=== PATIENT | male | born 1960 | race Caucasian/White ===

== ENCOUNTER 2022-02-28 15:24 | Outpatient (CLI) | payer MEDICARE, BC ==
[~2022-02-28 15:24] MED LIST: ASPI-1071 PO; ATOR10TA87 PO; DULA1.5P SQ; FLUO40CA PO; HYDR-3972 PO; IBUP-1986 PO; LEVO-65 PO; METF-437 PO; METO-395 PO; NORT10CA2 PO; OMEP40CA21 PO; RIVA4.5C17 PO; TRAZ-256 PO
== END 2022-02-28 23:59 | disposition home or self-care (01) ==
LOC: LAB SPEC 15:24
PROVIDERS: ATTEND Surgery
DX: T81.41XA Infection following a procedure, superficial incisional surgical site, initial encounter (principal); Y83.8 Other surgical procedures as the cause of abnormal reaction of the patient, or of later complication, without mention of misadventure at the time of the procedure; Y92.89 Other specified places as the place of occurrence of the external cause
CPT/HCPCS: 87070; 87075; 87077; 87186

== ENCOUNTER → 2022-05-22 | Outpatient (CLI) | payer MEDICARE, BC ==
[~2022-05-22] MED LIST changes: -LEVO-65 PO
== END | disposition home or self-care (01) ==
LOC: RAD 14:39
PROVIDERS: ATTEND Surgery
DX: T81.30XA Disruption of wound, unspecified, initial encounter (principal); I25.10 Atherosclerotic heart disease of native coronary artery without angina pectoris; K80.20 Calculus of gallbladder without cholecystitis without obstruction; Z98.890 Other specified postprocedural states; Y84.8 Other medical procedures as the cause of abnormal reaction of the patient, or of later complication, without mention of misadventure at the time of the procedure; Y92.89 Other specified places as the place of occurrence of the external cause
CPT/HCPCS: 71250

== ENCOUNTER 2022-06-02 08:00 | Inpatient (IN) | payer MEDICARE, BC ==
[2022-05-31 14:31] LABS: ALBUMIN 4.2 G/DL (3.4-5.0); ALBUMIN/GLOBULIN RATIO 1.5 (1.1-1.5); ALKALINE PHOSPHATASE 70 IU/L (46-116); BLOOD UREA NITROGEN 16 MG/DL (7-18); BUN/CREATININE RATIO 18.4 (5.4-32.0); CALCIUM 9.5 MG/DL (8.5-10.1); CHLORIDE 104 MMOL/L (99-107); CREATININE 0.87 MG/DL (0.60-1.10); PRE OP ALT 37 U/L (30-65); PRE OP ANION GAP 5 (8-16); PRE OP AST 18 U/L (10-37); PRE OP BILIRUB, TOTAL 1.1 MG/DL (0.0-1.0); PRE OP GLUCOSE 124 MG/DL (70-104); PRE OP POTASSIUM 4.7 MMOL/L (3.4-5.1); PRE OP SODIUM 139 MMOL/L (135-145); TOTAL CARBON DIOXIDE 30.5 MMOL/L (24-32); eGFR 89 ML/MIN
[2022-05-31 14:32] LABS: EOSINOPHILS # (AUTO) 0.1 X10'3 (0-0.9); LYMPHOCYTES # (AUTO) 2.3 X10'3 (1.1-4.8); MEAN PLATELET VOLUME 7.7 FL (7.4-10.4); MONOCYTES # (AUTO) 0.6 X10'3 (0-0.9); NEUTROPHILS # (AUTO) 3.6 X10'3 (1.8-7.7)
[2022-05-31 14:35] LABS: BASOPHILS % (AUTO) 0.7 % (0-1); EOSINOPHILS % (AUTO) 1.7 % (0-6); LYMPHOCYTES % (AUTO) 34.9 % (21-51); MEAN CORPUSCULAR HGB CONC 34.7 g/dL (33.0-36.5); MEAN CORPUSCULAR VOLUME 95.1 FL (78-98); MONOCYTES % (AUTO) 9.5 % (2-12); NEUTROPHILS % (AUTO) 53.2 % (42-75); PRE OP HEMATOCRIT 42.7 % (42.0-52.0); PRE OP HEMOGLOBIN 14.8 g/dL (14.0-17.9); PRE OP PLATELET COUNT 182 X10'3 (140-440); RED BLOOD COUNT 4.49 X10'6 (4.70-6.10); RED CELL DISTRIBUTION WIDTH 14.8 % (11.5-14.5)
[2022-05-31 14:58] LABS: HEMOGLOBIN A1C 5.6 % (4.5-6.2)
[~2022-06-02] VITALS: Ht 182.9 cm; Wt 114.7 kg
[2022-06-02] VITALS (15 sets, daily range): BP systolic 126–169; BP diastolic 68–86
[~2022-06-02 08:00] MED LIST changes: -ATOR10TA87 PO; +DOCUMENT DATE & TIME OF BETA-BLOCKER PO ONE; +FLUO20CA39 PO; -FLUO40CA PO; +LANTUS SQ; +ROSU5TAB12 PO; +ceFAZolin inj. 2,000 MG in dextrose 5%-water 100 ML IV ONE; +famotidine 20mg tablet PO ONE; +metoprolol tartrate 12.5mg (1/2 tablet) PO ONE; +mupirocin 2% nasal ointment 1gm UD NS ONE; +ringers solution, lacted 1,000 ML IV SCH; +vancomycin 1,500 MG in NS 300ml IV soln IV ONE
[2022-06-02] MEDS ORDERED: BUPIVAcaine 0.5% inj/PF 30 ML ONE ×2 (12:32→13:07)
[2022-06-02] MEDS ORDERED: ceFAZolin 1000mg inj ONE (12:32)
[2022-06-02] MEDS ORDERED: midazolam 1 mg/ML 2ml injection ONE ×2 (12:50→12:51)
[2022-06-02] MEDS ORDERED: fentaNYL /PF 50mcg/ml 5ml ampule ONE (12:51)
[2022-06-02] MEDS ORDERED: rocuronium 10mg/ml inj IV ONE (12:51)
[2022-06-02] MEDS ORDERED: propofol inj 20 ML IV ONE (12:51)
[2022-06-02] MEDS ORDERED: morphine 2 MG/ML inj. syringe IV PRN (13:00)
[2022-06-02] MEDS ORDERED: acetaminophen 1,000mg/100ml IV 100 ML IV PRN (13:00)
[2022-06-02] MEDS ORDERED: ondansetron/PF 4mg/2ml inj IV PRN ×2 (13:00→14:25)
[2022-06-02] MEDS ORDERED: meperidine/PF 25mg/ml syringe IV PRN ×3 (13:00)
[2022-06-02] MEDS ORDERED: labetalol 20mg/4ml (5mg/ml) syringe IV PRN (13:00)
[2022-06-02] MEDS ORDERED: morphine 4 MG/ML inj SYRINge IV PRN (13:00)
[2022-06-02] MEDS ORDERED: ringers solution, lacted 1,000 ML IV SCH (13:00)
[2022-06-02] MEDS ORDERED: sevoflurane 250ml liquid IH ONE (13:02)
[2022-06-02] MEDS ORDERED: BUPIVAcaine 0.5% inj/PF 30 ml vial IJ ONE (13:54)
[2022-06-02] MEDS ORDERED: neostigmine methylsulfate 1 MG/ML 10ml vial ONE (14:07)
[2022-06-02] MEDS ORDERED: glycopyrrolate 0.2mg/ml inj ONE (14:08)
[2022-06-02] MEDS ORDERED: naloxone 0.4 mg/ml inj IV PRN (14:25)
[2022-06-02] MEDS ORDERED: metoclopramide 5 mg/ml inj IV PRN (14:25)
[2022-06-02] MEDS ORDERED: HYDR-3965 PO (14:26)
--- NOTE | 2022-06-02 14:34 | NUR ---
Received from OR via BED, accompanied by Anesthesiologist and report given by ANTHONY Anesthesiologist AND OR NURSE. PT ARRIVED DROWSY BUT ABLE TO RESPOND TO VERBAL STIMULI ON 8 L OF 02 VIA MASK. VSS. PT HAS 20 G IV TO LEFT HAND, RIGHT IJ CENTRAL LINE WITH DRESSING C/D/I. ART LINE TO RIGHT WRIST AND PRESSURE DEVICE INTACT. PT HAS DRESSING TO MID CHEST THAT IS C/D/I. Addendum: 06/02/22 at 1504 by Apolinar Jackson RN Amended: Links added.
--- NOTE | 2022-06-02 15:34 | NUR ---
PATIENT HAS MET ALL CRITERIA FOR TRANSFER TO ICU FLOOR. VSS. DRESSINGS INTACT. BED LOW, CALL LIGHT PRESENT AND 2 RAILS UP. RN PRESENT TO ACCEPT CARE OF PATIENT AND REPORT HAS BEEN CALLED. ALL QUESTIONS ANSWERED TO ACCEPTING RN. Addendum: 06/02/22 at 1600 by Apolinar Jackson RN Amended: Links added.
[2022-06-02] MEDS ORDERED: morphine 4 MG/ML inj SYRINge IM ONE (15:55)
[2022-06-02] MEDS: HYDROcodone/acetaminophen 10/325mg tab PO PRN ×2 (16:21→21:10)
[2022-06-02] MEDS: ceFAZolin 1GM/D5W- ADD-VANTAGE 50 ML IV SCH ×2 (16:43→23:57)
--- NOTE | 2022-06-02 18:27 | NUR ---
Patient in room CICU 2009. I have received report from JUAN Balbuena and had the opportunity to ask questions and assume patient care.
--- NOTE | 2022-06-02 18:50 | NUR ---
Spoke with Dr Dennison telephone order given to D/C artline and central lines. Message relayed in shift report to Nicole MARTINEZ.
[2022-06-02] MEDS ORDERED: traZODone 50mg tablet PO PRN (19:50)
--- NOTE | 2022-06-02 21:56 | NUR ---
Patient in room CICU 2009. I have received report from BIMAL MARTINEZ and had the opportunity to ask questions and assume patient care.
--- NOTE | 2022-06-02 21:57 | NUR ---
Problems reprioritized. Patient report given, questions answered & plan of care reviewed with JUAN Sparks.
--- NOTE | 2022-06-02 22:00 | NUR ---
Patient in room PCU 3016. I have received report from BIMAL MARTINEZ and had the opportunity to ask questions and assume patient care.
--- NOTE | 2022-06-02 22:10 | NUR ---
Pt transferred to PCU, room 3016B, on ICU bed with all belongings. Accepting RN, Clare, at bedside to assist with transfer.
[2022-06-03] MEDS ORDERED: LIDOcaine 2% 10ml TOPICAL JELLY (Urojet) MM ONE ×2 (00:40→04:20)
[2022-06-03] MEDS: HYDROcodone/acetaminophen 10/325mg tab PO PRN ×4 (01:32→22:01)
[2022-06-03 02:00] VITALS: BP 159/67
--- NOTE | 2022-06-03 03:30 | NUR ---
PATIENT C/O PAIN, BURNING IN URETHRAL SITE-STRAIT CATH FOR BLADDER SCAN, 650 OUT, SCAN RESULTED IN 684 TOTAL. MAY NEED UA W S&S IF INDICATED, POSSIBLE UROLOGY CONSULT.
[2022-06-03] MEDS ORDERED: ketorolac trometh. 30mg/ml inj. IV ONE (04:20)
[2022-06-03] MEDS ORDERED: LIDOcaine 2% 10ml TOPICAL JELLY (Urojet) TP ONE (04:20)
--- NOTE | 2022-06-03 05:20 | NUR ---
1330 OUT OF KIMBLE S/P INSERTION AND BLADDER SCAN
--- NOTE | 2022-06-03 06:43 | NUR ---
Patient in room PCU 3016. I have received report from Clare MARTINEZ and had the opportunity to ask questions and assume patient care. Bedside report given. Pt arousebale to verbal stimuli. Pt denies chest pain. Pt denies pain. No distress. Pt has a dry island dressing to mid chest. There are dried sanguineous drainage areas that have been circled by prior nurses and has no new drainage. Addendum: 06/03/22 at 0645 by Goyo Ford LVN Amended: Links added.
--- NOTE | 2022-06-03 06:46 | NUR ---
Problems reprioritized. Patient report given, questions answered & plan of care reviewed with CHRISTIANO MARTINEZ.
[2022-06-03 07:00] VITALS: BP 166/80
[2022-06-03 07:08] LABS: BASOPHILS % (AUTO) 0.2 % (0-1); EOSINOPHILS % (AUTO) 0.6 % (0-6); HEMATOCRIT 37.9 % (42.0-52.0); HEMOGLOBIN 13.4 g/dl (14.0-17.9); LYMPHOCYTES # (AUTO) 1.2 X10'3 (1.1-4.8); LYMPHOCYTES % (AUTO) 14.2 % (21-51); MEAN CORPUSCULAR HEMOGLOBIN 33.7 PG (27.0-31.0); MEAN CORPUSCULAR HGB CONC 35.3 g/dL (33.0-36.5); MEAN CORPUSCULAR VOLUME 95.6 FL (78-98); MEAN PLATELET VOLUME 7.6 FL (7.4-10.4); MONOCYTES # (AUTO) 0.8 X10'3 (0-0.9); NEUTROPHILS # (AUTO) 6.3 X10'3 (1.8-7.7); PLATELET COUNT 142 X10'3 (140-440); RED BLOOD COUNT 3.96 X10'6 (4.70-6.10); RED CELL DISTRIBUTION WIDTH 14.7 % (11.5-14.5); WHITE BLOOD COUNT 8.4 X10'3 (4.5-11.0)
[2022-06-03 07:12] LABS: ALBUMIN 3.6 G/DL (3.4-5.0); ANION GAP 7 (8-16); BLOOD UREA NITROGEN 15 MG/DL (7-18); CALCIUM 8.8 MG/DL (8.5-10.1); CHLORIDE 102 MMOL/L (99-107); CREATININE 0.79 MG/DL (0.60-1.10); GLUCOSE 135 MG/DL (70-104); POTASSIUM 3.7 MMOL/L (3.5-5.1); SODIUM 137 MMOL/L (135-145); TOTAL CARBON DIOXIDE 28.4 MMOL/L (24-32); eGFR > 90 ML/MIN
[2022-06-03] MEDS: enoxaparin 40mg/0.4ml syringe SQ SCH (09:13)
--- NOTE | 2022-06-03 09:55 | NUR ---
Per Dr. Ray, pull landry catheter approximately 1300hrs. Bloom Conveyor Operator will assess for urinary retention, spontaneous voiding, and any urinary discomfort Addendum: 06/03/22 at 0956 by Goyo Ford LVN Amended: Links added.
[2022-06-03] MEDS ORDERED: FINASTERIDE 1 MG TABLET PO SCH (10:00)
[2022-06-03 11:00] VITALS: BP 127/74
--- NOTE | 2022-06-03 11:13 | NUR ---
Pharmacist informed property underwriter, finasteride dose is not in stock. MD attempted to be notified but no answer. Pharmacist Will attempt to call MD again.
--- NOTE | 2022-06-03 16:04 | NUR ---
GAS APPLIANCE REPAIRER documentation: I have reviewed and agree with all interventions, assessments performed and documented by JAIMEE ALVARADO.
--- NOTE | 2022-06-03 16:04 | NUR ---
JAIMEE Medication Administration: For this medication-pass time frame, all medication were reviewed, dispensed, administered and documented per hospital policy by JAIMEE ALVARADO.
[2022-06-03 18:00] VITALS: BP 134/72
--- NOTE | 2022-06-03 18:21 | NUR ---
Problems reprioritized. Patient report given, questions answered & plan of care reviewed with Carrie MARTINEZ. Addendum: 06/03/22 at 1822 by Goyo Ford LVN Amended: Links added.
[2022-06-03] MEDS ORDERED: tamsulosin 0.4mg capsule PO SCH (21:00)
--- NOTE | 2022-06-03 22:32 | NUR ---
LN called MD Jesus Dennison re: patient BS ([phone]) @2100, met protocol. Juma stated that he did not want to start protocol, pt going home in the AM.
[2022-06-03 23:00] VITALS: BP 125/65
[2022-06-04 02:00] VITALS: BP 109/55
[2022-06-04] MEDS: HYDROcodone/acetaminophen 10/325mg tab PO PRN ×2 (05:51→10:17)
[2022-06-04 07:02] LABS: BASOPHILS % (AUTO) 0.3 % (0-1); EOSINOPHILS # (AUTO) 0.1 X10'3 (0-0.9); EOSINOPHILS % (AUTO) 1.3 % (0-6); HEMOGLOBIN 12.9 g/dl (14.0-17.9); LYMPHOCYTES # (AUTO) 1.3 X10'3 (1.1-4.8); LYMPHOCYTES % (AUTO) 18.3 % (21-51); MEAN CORPUSCULAR HEMOGLOBIN 34.3 PG (27.0-31.0); MEAN CORPUSCULAR HGB CONC 35.9 g/dL (33.0-36.5); MEAN CORPUSCULAR VOLUME 95.6 FL (78-98); MEAN PLATELET VOLUME 7.8 FL (7.4-10.4); MONOCYTES % (AUTO) 14.7 % (2-12); NEUTROPHILS # (AUTO) 4.7 X10'3 (1.8-7.7); NEUTROPHILS % (AUTO) 65.4 % (42-75); PLATELET COUNT 115 X10'3 (140-440); RED BLOOD COUNT 3.77 X10'6 (4.70-6.10); RED CELL DISTRIBUTION WIDTH 14.3 % (11.5-14.5); WHITE BLOOD COUNT 7.1 X10'3 (4.5-11.0)
[2022-06-04 07:26] LABS: ALBUMIN 3.4 G/DL (3.4-5.0); ANION GAP 4 (8-16); BLOOD UREA NITROGEN 19 MG/DL (7-18); BUN/CREATININE RATIO 23.5 (5.4-32.0); CALCIUM 8.7 MG/DL (8.5-10.1); CHLORIDE 101 MMOL/L (99-107); CREATININE 0.81 MG/DL (0.60-1.10); GLUCOSE 200 MG/DL (70-104); POTASSIUM 3.7 MMOL/L (3.5-5.1); SODIUM 134 MMOL/L (135-145); TOTAL CARBON DIOXIDE 29.3 MMOL/L (24-32); eGFR > 90 ML/MIN
[2022-06-04 07:36] VITALS: BP 102/57
[2022-06-04] MEDS: enoxaparin 40mg/0.4ml syringe SQ SCH (07:50)
== END 2022-06-04 10:45 | disposition home or self-care (01) | DRG 909 ==
LOC: PAS IN 09:49 → CICU 2S 15:44 → PCU 3S 22:15
PROVIDERS: ADMIT Thoracic Surgery (Cardiothoracic Vascular Surgery); ATTEND Thoracic Surgery (Cardiothoracic Vascular Surgery)
PROC: 0PQ00ZZ Repair Sternum, Open Approach (ICD-10-PCS; principal; 2022-06-02 13:02)
DX: T81.32XA Disruption of internal operation (surgical) wound, not elsewhere classified, initial encounter (principal); E11.9 Type 2 diabetes mellitus without complications; I10 Essential (primary) hypertension; I25.10 Atherosclerotic heart disease of native coronary artery without angina pectoris; E78.5 Hyperlipidemia, unspecified; Z95.1 Presence of aortocoronary bypass graft; Y83.2 Surgical operation with anastomosis, bypass or graft as the cause of abnormal reaction of the patient, or of later complication, without mention of misadventure at the time of the procedure; Y92.89 Other specified places as the place of occurrence of the external cause
CPT/HCPCS: 36415; 71045; 80048; 80053; 82948; 83036; 85025; 86885; 86900; 86901; 87081; 93005; A4338; A4340; A4615; A4618; A6258; A6449; A7000; C1713; C1751; G0378; J0690; J1650; J1885; J2250; J2270; J2704; J2710; J3010; J3370; J3490; J7030; J7040; J7050; J7060; J7120; S0020

== ENCOUNTER 2024-03-11 12:42 | Emergency (ER) | payer MEDICARE, BC ==
[~2024-03-11] VITALS: Ht 182.9 cm; Wt 123.0 kg
[~2024-03-11 12:42] MED LIST changes: -DOCUMENT DATE & TIME OF BETA-BLOCKER PO ONE; -HYDR-3972 PO; -ROSU5TAB12 PO; +ROSU5TAB43 PO; -ceFAZolin inj. 2,000 MG in dextrose 5%-water 100 ML IV ONE; -famotidine 20mg tablet PO ONE; -metoprolol tartrate 12.5mg (1/2 tablet) PO ONE; -mupirocin 2% nasal ointment 1gm UD NS ONE; -ringers solution, lacted 1,000 ML IV SCH; -vancomycin 1,500 MG in NS 300ml IV soln IV ONE
[2024-03-11 13:40] LABS: BASOPHILS % (AUTO) 0.3 % (0-1); EOSINOPHILS # (AUTO) 0.1 X10'3 (0-0.9); EOSINOPHILS % (AUTO) 1.7 % (0-6); HEMATOCRIT 41.3 % (42.0-52.0); HEMOGLOBIN 14.7 g/dl (14.0-17.9); LYMPHOCYTES # (AUTO) 1.2 X10'3 (1.1-4.8); LYMPHOCYTES % (AUTO) 13.9 % (21-51); MEAN CORPUSCULAR HEMOGLOBIN 34.5 PG (27.0-31.0); MEAN CORPUSCULAR HGB CONC 35.5 g/dL (33.0-36.5); MONOCYTES # (AUTO) 0.9 X10'3 (0-0.9); MONOCYTES % (AUTO) 10.4 % (2-12); NEUTROPHILS # (AUTO) 6.3 X10'3 (1.8-7.7); NEUTROPHILS % (AUTO) 73.7 % (42-75); PLATELET COUNT 143 X10'3 (140-440); RED BLOOD COUNT 4.25 X10'6 (4.70-6.10); RED CELL DISTRIBUTION WIDTH 14.1 % (11.5-14.5); WHITE BLOOD COUNT 8.5 X10'3 (4.5-11.0)
[2024-03-11 13:58] LABS: ALANINE AMINOTRANSFERASE 22 U/L (12-78); ALBUMIN 3.8 G/DL (3.4-5.0); ALBUMIN/GLOBULIN RATIO 1.2 (1.1-1.5); ALKALINE PHOSPHATASE 70 IU/L (46-116); ANION GAP 10 (8-16); ASPARTATE AMINO TRANSFERASE 21 U/L (10-37); BILIRUBIN,TOTAL 1.1 MG/DL (0.1-1.0); BLOOD UREA NITROGEN 16 MG/DL (7-18); BUN/CREATININE RATIO 10.7 (10.0-20.0); CALCIUM 8.8 MG/DL (8.5-10.1); CHLORIDE 99 MMOL/L (99-107); GLUCOSE 188 MG/DL (70-104); LIPASE 32 U/L (16-77); POTASSIUM 4.2 MMOL/L (3.5-5.1); SODIUM 134 MMOL/L (135-145); TOTAL CARBON DIOXIDE 25.3 MMOL/L (24-32); TOTAL PROTEIN 6.9 G/DL (6.4-8.2); eCRCL 55 ML/MIN; eGFR 47 ML/MIN
[2024-03-11 17:14] LABS: BILIRUBIN,URINE NEGATIVE (Neg); CLARITY,URINE CLEAR (Clear); COLOR,URINE YELLOW (Yellow); GLUCOSE, URINE NEGATIVE (Neg); KETONES,URINE NEGATIVE (Neg); LEUKOCYTE ESTERASE ,URINE NEGATIVE (Neg); NITRITES, URINE NEGATIVE (Neg); OCCULT BLOOD,URINE NEGATIVE (Neg); PH,URINE 5.5 (4.8-8.0); PROTEIN,URINE NEGATIVE (Neg); UROBILINOGEN,URINE 0.2 E.U/dL (0.2-1.0)
[2024-03-11 17:24] LABS: UA COLLECTION TYPE CLN CATCH MIDSTREAM
[2024-03-11] MEDS ORDERED: iohexol 350MG/ML 100ml bottle IV ONE (18:22)
[2024-03-11 18:51] VITALS: PULSE 91
[2024-03-11] MEDS: ondansetron/PF 4mg/2ml inj IV ONE (18:57)
[2024-03-11] MEDS: morphine 4 MG/ML inj SYRINge IV ONE (18:57)
[2024-03-11] MEDS: normal saline 1000ml 1,000 ML IV ONE (18:58)
[2024-03-11] MEDS ORDERED: FLO0.4C PO (21:19)
[2024-03-11] MEDS ORDERED: ONDA-245 PO (21:19)
[2024-03-11] MEDS ORDERED: HYDR-3965 PO (21:19)
[2024-03-11 21:37] VITALS: RESP 12
[2024-03-11] MEDS: ketorolac trometh 15mg/ml vial 15 MG/ML ML IV ONE (21:37)
[2024-03-11] MEDS: tamsulosin 0.4mg capsule PO ONE (21:37)
[2024-03-11 21:39] VITALS: BP 152/83; TEMP 98.2; O2SAT 95
[2024-03-15] MEDS ORDERED: POLY17PO10 PO (11:51)
[2024-03-15] MEDS ORDERED: CIPR-259 PO (11:51)
[2024-03-15] MEDS ORDERED: HYDR-3965 PO (11:51)
== END 2024-03-11 21:47 | disposition home or self-care (01) ==
LOC: ER 12:42
DX: N20.9 Urinary calculus, unspecified (principal); Z88.0 Allergy status to penicillin; Z79.84 Long term (current) use of oral hypoglycemic drugs; Z79.82 Long term (current) use of aspirin; Z79.899 Other long term (current) drug therapy
CPT/HCPCS: 96374; 96375; 99285; J1885; J2270; J2405; J7030; Q9967; 36415; 74174; 80053; 81003; 83690; 85025; 96361

== ENCOUNTER 2024-05-08 10:51 | Outpatient (CLI) | payer MEDICARE, BC ==
[~2024-05-08 10:51] MED LIST changes: -DULA1.5P SQ; -NORT10CA2 PO; +ONDA-245 PO; -ROSU5TAB43 PO; +ROSU5TAB51 PO
== END 2024-05-08 23:59 | disposition home or self-care (01) ==
LOC: RAD 10:51
PROVIDERS: ATTEND Podiatrist Foot & Ankle Surgery
DX: M19.071 Primary osteoarthritis, right ankle and foot (principal); M62.571 Muscle wasting and atrophy, not elsewhere classified, right ankle and foot; M79.89 Other specified soft tissue disorders; M24.674 Ankylosis, right foot; M79.671 Pain in right foot
CPT/HCPCS: 73700